=== PATIENT | female | born 1970 | race African-American/Black ===

== ENCOUNTER 2017-08-01 23:23 | Emergency (ER) | payer BC ==
[~2017-08-01] VITALS: Ht 165.1 cm; Wt 86.4 kg
[~2017-08-01 23:23] MED LIST: ACETAMINOPHN-T1 EACH; AMITRIPTYLINE H10 MG; IBUPROFEN600 MG; Motrin PO; NEXIUM40 MG; VENLAFAXINE H37.5 M3
[2017-08-01 23:54] LABS: HEMATOCRIT 32.5 % (36.0-46.0); HEMOGLOBIN 11.7 G/DL (11.9-15.5); MCH 28.7 PG (29.0-34.0); MCV 79.9 FL (83-99); PLATELET COUNT 242 K/uL (156-360); RBC DIS.WIDTH-CV 13.5 % (11.8-14.6); RBC DIS.WIDTH-SD 39.5 % (39-53); RED BLOOD COUNT 4.07 M/uL (3.80-5.20); WHITE BLOOD COUNT 11.9 K/uL (4.1-10.2)
[2017-08-02 00:18] LABS: ALBUMIN 3.8 g/dL (3.2-4.8); CHLORIDE 105 mEq/L (99-109); POTASSIUM 3.3 mEq/L (3.7-5.4); SODIUM 138 mEq/L (136-147)
[2017-08-02 00:21] LABS: GLUCOSE 135 mg/dL (70-99); TOTAL PROTEIN 6.8 g/dL (6.4-8.3)
[2017-08-02 00:22] LABS: TOTAL BILIRUBIN 0.5 mg/dL (0.0-1.0)
[2017-08-02 00:24] LABS: ALKALINE PHOSPHATASE 77 IU/L (3-129); CREATININE 0.8 mg/dL (0.6-1.3); GFR ESTIMATE (CALCULATED) > 59 mL/min/
[2017-08-02 00:25] LABS: UREA NITROGEN (BUN) 11 mg/dL (9-23)
[2017-08-02 00:26] LABS: AST (GOT) 18 IU/L (2-34)
[2017-08-02 00:27] LABS: ALT (GPT) 19 IU/L (3-49)
[2017-08-02 00:33] LABS: QUANTITATIVE HCG < 4.0 MIU/ML
[2017-08-02 02:49] VITALS: BP 127/98
== END 2017-08-02 02:50 | disposition home or self-care (01) ==
LOC: EME 23:23 → EXP 23:23
DX: M79.7 Fibromyalgia (principal); G47.30 Sleep apnea, unspecified; Z71.1 Person with feared health complaint in whom no diagnosis is made
CPT/HCPCS: 80053; 81003; 84702; 85027; 99281; 99284

== ENCOUNTER 2017-11-12 22:26 | Emergency (ER) | payer BC ==
[~2017-11-12] VITALS: Ht 165.1 cm; Wt 104.1 kg
[2017-11-13] MEDS ORDERED: FLAGYL500 MG PO (00:28)
[2017-11-13 00:32] LABS: APPEARANCE SL.HAZY ((CLEAR)); BILIRUBIN NEGATIVE; BLOOD MODERATE; COLOR YELLOW ((YELLOW)); GLUCOSE (STRIP) NEGATIVE; KETONES NEGATIVE; LEUKOCYTES NEGATIVE; NITRITE NEGATIVE; PROTEIN (STRIP) 100; SPECIFIC GRAVITY 1.029 (1.000-1.030); UROBILINOGEN 0.2 MG/DL (0.2-1.0)
[2017-11-13 00:35] LABS: BACTERIA 1+ /HPF; EPITHELIAL CELLS RARE /HPF; MUCUS 3+ /LPF; UCUL ADDED? NO; WHITE BLOOD CELLS 0-5 /HPF (0-5)
[2017-11-13 00:42] VITALS: BP 138/94
== END 2017-11-13 00:43 | disposition home or self-care (01) ==
LOC: EME 22:26
PROVIDERS: Emergency Medicine
DX: N76.0 Acute vaginitis (principal); G47.30 Sleep apnea, unspecified; Z90.49 Acquired absence of other specified parts of digestive tract
CPT/HCPCS: 81003; 81025; 99281; 99283

== ENCOUNTER 2017-11-20 12:51 | Emergency (ER) | payer BC ==
[~2017-11-20] VITALS: Ht 165.1 cm; Wt 104.2 kg
[~2017-11-20 12:51] MED LIST changes: +FLAGYL500 MG PO
[2017-11-20 14:41] LABS: HEMOGLOBIN 12.7 G/DL (11.9-15.5); MCH 28.2 PG (29.0-34.0); MCHC 35.3 G/DL (30.0-36.0); PLATELET COUNT 260 K/uL (156-360); RBC DIS.WIDTH-SD 40.4 % (39-53); WHITE BLOOD COUNT 9.4 K/uL (4.1-10.2)
[2017-11-20 14:49] LABS: CHLORIDE 105 mEq/L (99-109); POTASSIUM 4.1 mEq/L (3.7-5.4); SODIUM 139 mEq/L (136-147)
[2017-11-20 14:51] LABS: GLUCOSE 76 mg/dL (70-99)
[2017-11-20 14:55] LABS: CREATININE 0.8 mg/dL (0.6-1.3); GFR ESTIMATE (CALCULATED) > 59 mL/min/; UREA NITROGEN (BUN) 9 mg/dL (9-23)
[2017-11-20 15:00] LABS: TROP-I INTERPRETATION NEGATIVE; TROPONIN-I < 0.01 ng/mL (0.0-0.30)
[2017-11-20] MEDS ORDERED: NORCO 5/3251 TABLET PO (16:08)
[2017-11-20] MEDS ORDERED: SKELAXIN800 MG PO (16:08)
[2017-11-20 16:39] VITALS: BP 123/76
== END 2017-11-20 17:31 | disposition home or self-care (01) ==
LOC: EME 12:51 → RME 12:51
DX: S16.1XXA Strain of muscle, fascia and tendon at neck level, initial encounter (principal); M54.12 Radiculopathy, cervical region; G47.33 Obstructive sleep apnea (adult) (pediatric)
CPT/HCPCS: 71046; 80048; 84484; 85027; 93005; 99281; 99284

== ENCOUNTER 2017-11-22 13:31 | Emergency (ER) | payer BC ==
[~2017-11-22] VITALS: Ht 165.1 cm; Wt 106.1 kg
[~2017-11-22 13:31] MED LIST changes: +NORCO 5/3251 TABLET PO; +SKELAXIN800 MG PO
[2017-11-22 15:40] LABS: HEMATOCRIT 36.1 % (36.0-46.0); HEMOGLOBIN 12.9 G/DL (11.9-15.5); MCH 28.5 PG (29.0-34.0); MCHC 35.7 G/DL (30.0-36.0); MCV 79.7 FL (83-99); PLATELET COUNT 252 K/uL (156-360); RBC DIS.WIDTH-CV 14.2 % (11.8-14.6); RBC DIS.WIDTH-SD 40.9 % (39-53); RED BLOOD COUNT 4.53 M/uL (3.80-5.20); WHITE BLOOD COUNT 9.5 K/uL (4.1-10.2)
[2017-11-22 15:50] LABS: CHLORIDE 104 mEq/L (99-109); SODIUM 136 mEq/L (136-147)
[2017-11-22 15:52] LABS: GLUCOSE 77 mg/dL (70-99)
[2017-11-22 15:55] LABS: CREATININE 0.8 mg/dL (0.6-1.3); GFR ESTIMATE (CALCULATED) > 59 mL/min/
[2017-11-22 15:56] LABS: UREA NITROGEN (BUN) 10 mg/dL (9-23)
[2017-11-22 16:00] LABS: TROP-I INTERPRETATION NEGATIVE; TROPONIN-I < 0.01 ng/mL (0.0-0.30)
[2017-11-22] MEDS ORDERED: ULTRAM50 MG PO (17:38)
[2017-11-22 18:08] VITALS: BP 135/94
== END 2017-11-22 18:08 | disposition home or self-care (01) ==
LOC: EME 13:31
PROVIDERS: Emergency Medicine
DX: S16.1XXA Strain of muscle, fascia and tendon at neck level, initial encounter (principal); G47.30 Sleep apnea, unspecified
CPT/HCPCS: 71275; 80048; 84484; 85027; 93005; 99281; 99284; J1885